=== PATIENT | male | born 1945 | race Caucasian/White ===

== ENCOUNTER 2016-08-29 17:25 | Emergency (ER) | payer OTHER ==
[2016-08-29 17:35] VITALS: BP 114/73; PULSE 61; TEMP 97; BMI 27.7
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
[2016-08-29] MEDS ORDERED: IBUPROFEN 600 MG TABLET (FP) PO ONE (18:51)
== END 2016-08-29 18:59 | disposition home or self-care (01) ==
LOC: JERFT 17:25
DX: S13.4XXA Sprain of ligaments of cervical spine, initial encounter (principal); V44.6XXA Car passenger injured in collision with heavy transport vehicle or bus in traffic accident, initial encounter; Y93.89 Activity, other specified; Y92.410 Unspecified street and highway as the place of occurrence of the external cause; Z86.73 Personal history of transient ischemic attack (TIA), and cerebral infarction without residual deficits
CPT/HCPCS: 99281-25